=== PATIENT | female | born 1985 ===

== ENCOUNTER → 2023-03-20 16:17 | Outpatient (CLI) | payer BC, SELFPAY ==
--- NOTE | ~2023-03-20 | XR_ITS ---
EXAMINATION: XR abdomen/kub 1V DATE: 03/20/2023 16:49 INDICATION: Unspecified abdominal pain. TECHNIQUE: A supine view of the abdomen on 2 radiographs was obtained. COMPARISON: None. FINDINGS: There are no dilated loops of bowel. There is a large volume of stool in the colon. There a re fixation rods of the spine. IMPRESSION: 1. Large volume of stool in the colon. Reviewed, dictated and finalized at location E. 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
== END ==
PROVIDERS: PCP Family Medicine; Visit Provider Physician Assistant
DX: R10.9 Unspecified abdominal pain (principal)
CPT/HCPCS: 74018

== ENCOUNTER 2023-04-03 10:35 | Outpatient (CLI) | payer BC, SELFPAY ==
--- NOTE | ~2023-04-03 | CT_ITS ---
EXAMINATION: CT abdomen pelvis w con DATE: 04/03/2023 11:24 INDICATION: Left lower quadrant abdominal pain TECHNIQUE: Computed tomography (CT) of the abdomen and pelvis was performed with 100 mL Omnipaque-350 intravenous contrast. Automated exposure control and iterative reconstruction technique were employe d. The dose-length product was 269.54 mGy-cm. COMPARISON: None FINDINGS: Lung bases are clear. Heart size is normal. No pericardial or pleural effusion. Liver, gallbladder, s pleen, pancreas, bilateral adrenal glands and kidneys are normal. Moderate to large amount of stool s cattered throughout the colon. No abnormal bowel wall thickening or obstruction. Small bowel and appe ndix are normal. Avid thin peripheral rim of enhancement at the 2.4 cm left ovarian likely corpus lut eum cyst. The right adnexa, retroverted uterus and bladder are unremarkable. Small amount of likely p hysiologic free fluid in the cul-de-sac. No abscess or free intraperitoneal gas. Mild thoracolumbar l evoscoliosis with instrumented thoracolumbar posterior spinal fusion with bilateral vertical deisy and laminar hook fixation beginning caudally at level of L3 and extending cephalad to at least T7 and bey ond the cephalad margin of the [id number]. IMPRESSION: 1. 2.4 similar peripherally enhancing likely corpus luteum cyst in the left ovary and small amount of likely physiologic free fluid in the cul-de-sac. No other acute intra-abdominal/pelvic process. Reviewed, dictated and finalized at location A. 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 2.4 similar peripherally enhancing likely corpus luteum cyst in the left ova ry and small amount of likely physiologic free fluid in the cul-de-sac. No othe r acute intra-abdominal/pelvic process.
== END 2023-04-03 10:36 | disposition home or self-care (01) ==
PROVIDERS: PCP Family Medicine; Visit Provider Physician Assistant
DX: R10.32 Left lower quadrant pain (principal); R19.7 Diarrhea, unspecified; R11.2 Nausea with vomiting, unspecified
CPT/HCPCS: 74177; Q9967

== ENCOUNTER → 2023-04-27 11:11 | Outpatient (CLI) | payer BC, SELFPAY ==
--- NOTE | ~2023-04-27 | US_ITS ---
Pelvic ultrasound. Clinical History: Ovarian cyst Technique: Realtime transabdominal and transvaginal scanning of the pelvis was performed. Color flow Doppler and Doppler spectral analysis were performed. Findings: The uterus is retroverted. The endometrial stripe has a thickness of 12 mm. No focal mass is identified. The right ovary measures 2.2 x 2.9 x 2.1 cm. No significant right ovarian or adnexal mass is seen. 1 .8 cm right ovarian follicular cyst is present. The left ovary measures 3.6 x 2.9 x 2.7 cm. No significant left ovarian or adnexal mass is seen. Vascular flow present in both ovaries on Doppler spectral interrogation. There is trace free fluid in the cul de sac. Impression: No significant abnormality. Reviewed, dictated and finalized at [facility]. HEEL FINISHER Impression: No significant abnormality.
== END ==
PROVIDERS: PCP Physician Assistant; Visit Provider Physician Assistant
DX: N83.202 Unspecified ovarian cyst, left side (principal)
CPT/HCPCS: 76830